=== PATIENT | female | born 1940 | race Caucasian/White ===

== ENCOUNTER 2017-10-06 13:44 | Inpatient (IN) ==
[2017-10-06] MEDS ORDERED: ALBUTEROL/IPRATROPIUM 3 ML NEB RESP TX STA ×2 (16:54→18:04)
[2017-10-06 17:29] LABS: Basophils % 0.7 % (0.0-0.8); Eosinophils # 0.1 10*3/uL (0.0-0.87); Hematocrit 42.4 VOL% (35.7-47.0); Hemoglobin 13.7 GM/DL (12.0-16.0); Immature Granulocytes % 0.4 %; Immature Granulocytes Absolute 0.02 #; Lymphocytes # 1.5 10*3/uL (1.4-4.0); Lymphocytes % 26.9 % (21.3-54.2); Mean Corpuscular HGB Conc 32.3 GM/DL (32-36); Mean Corpuscular Hemoglobin 29 PG (27-34); Mean Corpuscular Volume 89.6 FL (87-102); Mean Platelet Volume 9.5 FL (9.6-12.0); Monocytes # 0.5 10*3/uL (0.11-0.8); Monocytes % 8.5 % (1.7-12.7); Neutrophils # 3.4 10*3/uL (1.4-7.4); Neutrophils % 61.5 % (38.7-73.9); Platelet Count 189 T/CUMM (130-400); Red Blood Count 4.73 MC/CUMM (3.8-5.5); Red Cell Distribution Width 15.6 % (9.3-17.3); White Blood Count 5.5 T/CUMM (4-12)
[2017-10-06 17:48] LABS: Albumin 4.2 G/DL (3.4-5.0); Bilirubin,Total 0.4 MG/DL (0.2-1.0); Osmolality,Calculated 277.5 MOS/KG (273-304); Potassium 3.6 MMOL/L (3.5-5.1); Total Protein 7.7 G/DL (6.4-8.3)
[2017-10-06] MEDS ORDERED: LEVOFLOXACIN INJ 750 MG in PREMIX 1 EACH IV STA (18:04)
[2017-10-06] MEDS ORDERED: LEVOFLOXACIN INJ 150 ML IV ONE (18:26)
[2017-10-06] MEDS ORDERED: ONDANSETRON 4 MG/2 ML VIAL IV PRN (21:49)
[2017-10-06] MEDS ORDERED: ACETAMINOPHEN 325 MG TABLET PO PRN (21:49)
[2017-10-06] MEDS ORDERED: ALBUTEROL/IPRATROPIUM 3 ML NEB RESP TX PRN (21:53)
[2017-10-06] MEDS ORDERED: SODIUM CHLORIDE 0.45% 1,000 ML IV SCH (22:00)
[2017-10-06] MEDS ORDERED: DEXTROSE 50% 25 GM/50 ML VIAL IV PRN (22:03)
[2017-10-06] MEDS ORDERED: GLUCAGON 1 MG VIAL IM PRN (22:03)
[2017-10-06] MEDS: methylPREDNISolone SOD SUC 40 MG/1 ML VIAL IV SCH (23:31)
[2017-10-06] MEDS: LEVOFLOXACIN INJ 750 MG in PREMIX 1 EACH IV SCH (23:43)
[2017-10-07 05:51] LABS: Basophils % 0.3 % (0.0-0.8); Eosinophils % 0.2 % (0.00-10.9); Hematocrit 40.8 VOL% (35.7-47.0); Hemoglobin 13.4 GM/DL (12.0-16.0); Immature Granulocytes % 0.5 %; Immature Granulocytes Absolute 0.03 #; Lymphocytes # 0.9 10*3/uL (1.4-4.0); Lymphocytes % 15.5 % (21.3-54.2); Mean Corpuscular HGB Conc 32.8 GM/DL (32-36); Mean Corpuscular Hemoglobin 29 PG (27-34); Mean Corpuscular Volume 88.7 FL (87-102); Mean Platelet Volume 10.5 FL (9.6-12.0); Monocytes # 0.1 10*3/uL (0.11-0.8); Neutrophils # 4.8 10*3/uL (1.4-7.4); Neutrophils % 81.5 % (38.7-73.9); Platelet Count 207 T/CUMM (130-400); Red Cell Distribution Width 15.5 % (9.3-17.3); White Blood Count 5.9 T/CUMM (4-12)
[2017-10-07] MEDS: LEVOTHYROXINE 100 MCG TABLET PO SCH (06:07)
[2017-10-07] MEDS: methylPREDNISolone SOD SUC 40 MG/1 ML VIAL IV SCH ×3 (06:10→21:24)
[2017-10-07 06:22] LABS: Potassium 4.2 MMOL/L (3.5-5.1)
[2017-10-07] MEDS: ENOXAPARIN 40 MG/0.4 ML SYRINGE SUBCUT SCH (09:59)
[2017-10-07] MEDS: LOSARTAN 50 MG TABLET PO SCH (09:59)
[2017-10-07] MEDS: CALCIUM (CARBONATE)/VITAMIN D 500 MG-200 UNIT TABLET PO SCH (10:00)
[2017-10-07] MEDS: NEBIVOLOL 10 MG TABLET PO SCH (10:00)
[2017-10-07] MEDS: MONTELUKAST 10 MG TABLET PO SCH (10:00)
[2017-10-07] MEDS: PANTOPRAZOLE 40 MG TABLET PO SCH (10:00)
[2017-10-07] MEDS: INSULIN REGULAR 100 UNIT/ML SUBCUT SCH ×4 (10:01→21:16)
[2017-10-07] MEDS: BUDESONIDE/FORMOTEROL 160-4.5 INHALER 6 GM INH SCH ×2 (10:01→21:19)
[2017-10-07] MEDS: ATORVASTATIN 40 MG TABLET PO SCH (21:18)
[2017-10-07] MEDS: ASPIRIN EC 81 MG TABLET PO SCH (21:19)
[2017-10-07] MEDS: LEVOFLOXACIN INJ 750 MG in PREMIX 1 EACH IV SCH (21:21)
[2017-10-08] MEDS: methylPREDNISolone SOD SUC 40 MG/1 ML VIAL IV SCH ×3 (06:11→21:23)
[2017-10-08] MEDS: LEVOTHYROXINE 100 MCG TABLET PO SCH (06:12)
[2017-10-08] MEDS: CALCIUM (CARBONATE)/VITAMIN D 500 MG-200 UNIT TABLET PO SCH (09:57)
[2017-10-08] MEDS: LOSARTAN 50 MG TABLET PO SCH (09:58)
[2017-10-08] MEDS: NEBIVOLOL 10 MG TABLET PO SCH (09:58)
[2017-10-08] MEDS: MONTELUKAST 10 MG TABLET PO SCH (09:58)
[2017-10-08] MEDS: PANTOPRAZOLE 40 MG TABLET PO SCH (09:58)
[2017-10-08] MEDS: ENOXAPARIN 40 MG/0.4 ML SYRINGE SUBCUT SCH (10:01)
[2017-10-08] MEDS: BUDESONIDE/FORMOTEROL 160-4.5 INHALER 6 GM INH SCH ×2 (10:01→21:28)
[2017-10-08] MEDS: INSULIN REGULAR 100 UNIT/ML SUBCUT SCH ×4 (10:01→21:29)
[2017-10-08] MEDS: ASPIRIN EC 81 MG TABLET PO SCH (21:20)
[2017-10-08] MEDS: ATORVASTATIN 40 MG TABLET PO SCH (21:21)
[2017-10-08] MEDS: LEVOFLOXACIN INJ 750 MG in PREMIX 1 EACH IV SCH (21:26)
[2017-10-09] MEDS: LEVOTHYROXINE 100 MCG TABLET PO SCH (06:05)
[2017-10-09] MEDS: methylPREDNISolone SOD SUC 40 MG/1 ML VIAL IV SCH ×3 (06:08→21:57)
[2017-10-09] MEDS: INSULIN REGULAR 100 UNIT/ML SUBCUT SCH ×4 (08:42→21:45)
[2017-10-09] MEDS: BUDESONIDE/FORMOTEROL 160-4.5 INHALER 6 GM INH SCH ×2 (09:20→21:58)
[2017-10-09] MEDS: LOSARTAN 50 MG TABLET PO SCH (09:21)
[2017-10-09] MEDS: PANTOPRAZOLE 40 MG TABLET PO SCH (09:21)
[2017-10-09] MEDS: NEBIVOLOL 10 MG TABLET PO SCH (09:21)
[2017-10-09] MEDS: CALCIUM (CARBONATE)/VITAMIN D 500 MG-200 UNIT TABLET PO SCH (09:21)
[2017-10-09] MEDS: MONTELUKAST 10 MG TABLET PO SCH (09:22)
[2017-10-09] MEDS: ENOXAPARIN 40 MG/0.4 ML SYRINGE SUBCUT SCH (11:08)
[2017-10-09] MEDS ORDERED: AMINOPHYLLINE 250 MG in SODIUM CHLORIDE 0.9% 100 ML IV ONE (11:30)
[2017-10-09] MEDS ORDERED: AMINOPHYLLINE 500 MG in SODIUM CHLORIDE 0.9% 480 ML IV SCH (16:00)
[2017-10-09] MEDS: ASPIRIN EC 81 MG TABLET PO SCH (21:57)
[2017-10-09] MEDS: LEVOFLOXACIN INJ 750 MG in PREMIX 1 EACH IV SCH (21:57)
[2017-10-09] MEDS: ATORVASTATIN 40 MG TABLET PO SCH (21:57)
[2017-10-10 04:46] LABS: Hematocrit 39.2 VOL% (35.7-47.0); Hemoglobin 12.8 GM/DL (12.0-16.0); Immature Granulocytes % 0.7 %; Immature Granulocytes Absolute 0.08 #; Lymphocytes # 0.9 10*3/uL (1.4-4.0); Lymphocytes % 8.5 % (21.3-54.2); Mean Corpuscular HGB Conc 32.7 GM/DL (32-36); Mean Corpuscular Hemoglobin 29 PG (27-34); Mean Corpuscular Volume 88.7 FL (87-102); Mean Platelet Volume 10.6 FL (9.6-12.0); Monocytes # 0.7 10*3/uL (0.11-0.8); Monocytes % 6.1 % (1.7-12.7); Neutrophils # 9.2 10*3/uL (1.4-7.4); Neutrophils % 84.7 % (38.7-73.9); Platelet Count 241 T/CUMM (130-400); Red Blood Count 4.42 MC/CUMM (3.8-5.5); Red Cell Distribution Width 15.5 % (9.3-17.3); White Blood Count 10.9 T/CUMM (4-12)
[2017-10-10 05:12] LABS: Calcium 8.9 MG/DL (8.5-10.1); Osmolality,Calculated 281.5 MOS/KG (273-304); Potassium 4.1 MMOL/L (3.5-5.1)
[2017-10-10] MEDS: LEVOTHYROXINE 100 MCG TABLET PO SCH (06:20)
[2017-10-10] MEDS: methylPREDNISolone SOD SUC 40 MG/1 ML VIAL IV SCH ×2 (06:22→12:20)
[2017-10-10] MEDS: INSULIN REGULAR 100 UNIT/ML SUBCUT SCH ×2 (08:07→12:20)
[2017-10-10] MEDS: LOSARTAN 50 MG TABLET PO SCH (09:34)
[2017-10-10] MEDS: CALCIUM (CARBONATE)/VITAMIN D 500 MG-200 UNIT TABLET PO SCH (09:35)
[2017-10-10] MEDS: NEBIVOLOL 10 MG TABLET PO SCH (09:35)
[2017-10-10] MEDS: ENOXAPARIN 40 MG/0.4 ML SYRINGE SUBCUT SCH (09:35)
[2017-10-10] MEDS: PANTOPRAZOLE 40 MG TABLET PO SCH (09:35)
[2017-10-10] MEDS: MONTELUKAST 10 MG TABLET PO SCH (09:35)
[2017-10-10] MEDS: BUDESONIDE/FORMOTEROL 160-4.5 INHALER 6 GM INH SCH (09:36)
[2017-10-10] MEDS ORDERED: THEOPHYLLINE ER (24 HR) 200 MG CAPSULE PO SCH (11:00)
[2017-10-10 12:04] VITALS: BP 102/56
== END 2017-10-10 14:30 | disposition home or self-care (01) | DRG 202 ==
LOC: N.ED 13:44 → SUATTDRO 21:49 → N.EDINP 21:49 → N.2E 22:28
PROVIDERS: ADMIT Internal Medicine; ATTEND Internal Medicine Geriatric Medicine